=== PATIENT | female | born 1970 | race Caucasian/White ===

== ENCOUNTER → 2022-08-01 | Outpatient (CLI) | payer MEDICAID, SELFPAY ==
[2022-08-01 13:39] LABS: Absolute Lymphocyte Count 3.22 X10^3/uL (0.83-4.51); Absolute Neutrophil Count 5.4 X10^3/uL (2.0-7.7); Basophil# 0.07 X10^3/uL; Basophil% 0.7 % (0-1); Eosinophil# 0.09 X10^3/uL; Eosinophils% 0.9 % (0-5); Hematocrit 39.6 % (37-47); Hemoglobin 13.1 g/dL (12.0-15.0); Lymphocyte # 3.22 X10^3/ul (0.83-4.51); Lymphocyte % 33.3 % (19-41); Mean Corp Hgb Conc 33.1 g/dL (32-36); Mean Corpuscular Hgb 30.8 pg (27.0-32.0); Mean Platelet Vol. 8.6 fl (6.2-12.0); Monocyte# 0.79 X10^3/uL; Monocyte% 8.2 % (0-10); NRBC Flagged by Analyzer 0 % (0-5); Neutrophil % 55.9 % (47-70); Platelet Count 374 K/mm3 (150-450); RBC Distribution Width CV 13.5 % (11.6-14.6); RBC Distribution Width SD 45.7 fl (35.1-43.9); Red Blood Count 4.26 M/mm3 (4.2-5.4); White Blood Count 9.7 K/mm3 (4.4-11.0)
[2022-08-01 13:43] LABS: Erythrocyte Sedimentation Rate 29 mm/hr (0-30)
[2022-08-01 13:59] LABS: D-Dimer Quantitative (DVT/PE) 0.42 FEU/ug/m (0.27-0.49)
[2022-08-03 13:08] LABS: Anti-Centromere B Ab <0.2 AI (0.0-0.9); Anti-Chromatin <0.2 AI (0.0-0.9); Anti-Jo <0.2 AI (0.0-0.9); Anti-Scleroderma-70 AB <0.2 AI (0.0-0.9); Anti-dsDNA Ab <1 IU/mL (0-9); RNP Ab <0.2 AI (0.0-0.9); SJOGREN'S Anti-SS-A test < 0.2 AI (0.0-0.9); SJOGREN'S Anti-SS-B test < 0.2 AI (0.0-0.9); Smith Ab <0.2 AI (0.0-0.9)
[2022-08-06 12:07] LABS: Cytoplasmic Ab (C-ANCA) <1:20 titer (Neg:<1:20); Immunoglobulin E < 2 IU/mL (6-495); PROEL- A/G Ratio 1.2 (0.7-1.7); PROEL- Albumin 3.7 g/dL (2.9-4.4); PROEL- Alpha-1 Globulin 0.2 g/dL (0.0-0.4); PROEL- Alpha-2 Globulin 0.9 g/dL (0.4-1.0); PROEL- Beta Globulin 0.9 g/dL (0.7-1.3); PROEL- Globulin, Total 3.1 g/dL (2.2-3.9); PROEL- TOTAL PROTEIN 6.8 g/dL (6.0-8.5); Perinuclear Ab (P-ANCA) <1:20 titer (Neg:<1:20)
== END | disposition home or self-care (01) ==
PROVIDERS: PCP Nurse Practitioner Primary Care; Referring Provider Internal Medicine; Visit Provider Internal Medicine
DX: R06.02 Shortness of breath (principal); J30.9 Allergic rhinitis, unspecified; L95.9 Vasculitis limited to the skin, unspecified
CPT/HCPCS: 36415; 82785; 84165; 85025; 85379; 85652; 86140; 86225; 86235; 86256; 87040; 87449; 87633

== ENCOUNTER → 2022-08-04 | Outpatient (CLI) | payer MEDICAID, SELFPAY ==
[2022-08-04 10:07] LABS: Amphetamine Urine VISTA NEGATIVE (<1000 ng/mL); Barbiturate Urine VISTA NEGATIVE (< 200 ng/mL); Benzodiazepine Urine VISTA NEGATIVE (< 200 ng/mL); Cocaine Urine VISTA NEGATIVE (< 300 ng/mL); Ecstacy Urine VISTA NEGATIVE (< 500 ng/mL); Methadone Urine VISTA NEGATIVE (< 300 ng/mL); PCP Urine VISTA NEGATIVE (< 25 ng/mL); THC Urine VISTA NEGATIVE (< 50 ng/mL); Vista UDS pH Range 6
== END | disposition home or self-care (01) ==
LOC: LABSPEC 09:05
PROVIDERS: PCP Nurse Practitioner Primary Care; Referring Provider Internal Medicine; Visit Provider Internal Medicine
DX: R06.02 Shortness of breath (principal); L95.9 Vasculitis limited to the skin, unspecified; J30.9 Allergic rhinitis, unspecified; M54.9 Dorsalgia, unspecified
CPT/HCPCS: 80307; 87070; 87205

== ENCOUNTER → 2022-08-18 | Outpatient (CLI) | payer MEDICAID, SELFPAY | END | disposition home or self-care (01) | LOC: SL 20:18 | PROVIDERS: PCP Nurse Practitioner Primary Care; Visit Provider Internal Medicine | DX: G47.10 Hypersomnia, unspecified (principal); G47.30 Sleep apnea, unspecified; G25.9 Extrapyramidal and movement disorder, unspecified; G47.34 Idiopathic sleep related nonobstructive alveolar hypoventilation | CPT/HCPCS: 95810 ==

== ENCOUNTER → 2022-08-23 | Outpatient (CLI) | payer MEDICAID, SELFPAY ==
--- NOTE | 2022-08-23 16:57 | CT_ITS ---
EXAM: CT CHEST WITHOUT INTRAVENOUS CONTRAST CLINICAL INDICATION: follow up bibasilar lung nodules -- biapical emphysema TECHNIQUE: Helically acquired images were obtained of the chest without intravenous contrast. This CT exam was performed using one or more of the following dose reduction techniques: automated exposure control, adjustment of the mA and/or kV according to patient size, and/or use of iterative reconstruction technique. RADIATION DOSE: Total DLP: 554.18 mGy-cm. COMPARISON: No relevant prior studies available. FINDINGS: LUNGS AND PLEURAL SPACES: Mild pulmonary emphysema is present. No superimposed airspace disease or interstitial thickening is noted. There is no pleural effusion. No apical emphysematous blebs or bullae are identified. Within the left lower lobe laterally is a 4 mm ovoid circumscribed noncalcified nodule. Within the superior lateral right lower lobe is a 4.7 x 3 mm ovoid circumscribed noncalcified subpleural nodule. 2 additional pleural-based nodules are seen at the right lung base along the right hemidiaphragm, measuring 3 mm and 4.5 mm in maximal diameter. No spiculated pulmonary mass lesions are identified. HEART: No coronary artery calcification or significant pericardial effusion. MEDIASTINUM: Minimal streaky scarring or residual thymus noted within the anterior mediastinum. A normal size pre-tracheal lymph node is present. No mediastinal adenopathy. Esophagus is unremarkable. No hiatal hernia. THYROID: Unremarkable. No thyroid lesions. BONES/JOINTS: Mid to lower thoracic degenerative spurring. No acute osseous abnormality. No suspicious lytic or blastic abnormality. VASCULATURE: Thoracic aorta is normal in caliber. INTRAPERITONEAL SPACE: Within the superior right hepatic lobe is a 3.2 cm rounded hypodense lesion with slightly lobulated margins; this lesion is more dense than a simple cyst and most likely represents cavernous hemangioma. Visualized spleen, pancreas, adrenal glands and renal upper poles are unremarkable. No pneumoperitoneum is noted. CT/Chest without Contrast IMPRESSION: Mild pulmonary emphysema. Small noncalcified circumscribed lower lobe nodules measuring under 6 mm in diameter; Fleischner Society Guidelines (MacPhillhon, et al. Radiology 2017; 284(1):228-43) suggest that no follow-up is necessary for patients with a low risk of malignancy. 3.2 cm hypoattenuating lesion within the right hepatic lobe, more dense than a simple cyst and most likely due to cavernous hemangioma. Ultrasound, enhanced CT or MR could be utilized for confirmation. Electronically Signed: Donaldo Stubbs MD at 3:54 EDT ,
--- NOTE | 2022-08-23 16:59 | CT_ITS ---
EXAM: CT MAXILLOFACIAL SINUSES WITHOUT INTRAVENOUS CONTRAST CLINICAL INDICATION: SINUSITIS TECHNIQUE: Helically acquired images were obtained of the maxillofacial sinuses without intravenous contrast. This CT exam was performed using one or more of the following dose reduction techniques: automated exposure control, adjustment of the mA and/or kV according to patient size, and/or use of iterative reconstruction technique. RADIATION DOSE: Total DLP: 809.06 mGy-cm. COMPARISON: No relevant prior studies available. FINDINGS: MAXILLARY SINUSES: Clear. SPHENOID SINUSES: Clear. FRONTAL SINUSES: Clear. Type I Agger cell on the right. Type II Agger cell on the left. ETHMOID AIR CELLS: Clear. No supraorbital ethmoid air cell. NASAL CAVITY/SEPTUM: Nasal septum is midline. Inferior turbinates are hypertrophied. There is slight paradoxical curvature of the middle turbinates anteriorly. No kit bullosa. There is lateral deviation of each uncinate process with narrowing of the ethmoidal infundibulum, with each ethmoid infundibulum measuring under 1 mm in diameter, as measured on the coronal images. BONES/JOINTS: Previous interbody fusion at the C3 4/5 level. Left-sided facet arthritis in the mid cervical region. ORBITS: Unremarkable. DENTAL: Periapical lucencies noted about the right lower canine and right lower premolars indicating periodontal disease. OTHER: Visualized brain parenchyma is unremarkable. The mastoid air cells are clear. Submandibular and parotid glands are symmetric. Parapharyngeal fat is preserved. Epiglottis is normal in size. CT/Sinus/Facial Bone IMPRESSION: No findings of acute or chronic sinusitis. No paranasal sinus retention cysts. Hypertrophy of the inferior nasal turbinates. No kit bullosa. Lateral deviation of each uncinate process with subsequent narrowing of each ethmoid infundibulum. Electronically Signed: Donaldo Stubbs MD at 4:53 EDT ,
== END | disposition home or self-care (01) ==
PROVIDERS: PCP Nurse Practitioner Primary Care; Referring Provider Otolaryngology; Visit Provider Otolaryngology
DX: J32.8 Other chronic sinusitis (principal)
CPT/HCPCS: 70486; 71250

== ENCOUNTER 2022-08-24 17:04 | Emergency (ER) | payer MEDICAID, SELFPAY ==
[2022-08-24 17:07] VITALS: BP 135/80; PULSE 83; RESP 18; TEMP 36; O2SAT 99; BMI 27.8
--- NOTE | 2022-08-24 17:53 | CT_ITS ---
INDICATION: Anisocoria EXAMINATION: CT BRAIN WITH CONTRAST TECHNIQUE: Noncontrast axial images were obtained of the brain. Subsequently, routine carotid CT angiogram protocol was performed without and with IV contrast. In addition, images were obtained of the [place]. NASCET criteria using the distal ICAs for comparison were used for evaluation of stenoses. 3D reconstructions were reviewed. A radiation dose optimization technique was used for this scan. IV Contrast dosage and agent: COMPARISON: None. FINDINGS: --CT BRAIN: BRAIN PARENCHYMA: No intra- or extra-axial hemorrhage. No evidence of acute infarct. No intracranial mass or mass effect. There is preservation of the cali/white matter interface. Posterior fossa structures are unremarkable. CSF SPACES: Appropriate for age. No hydrocephalus. Basal cisterns are patent. CALVARIUM, SKULL BASE, PARANASAL SINUSES AND MASTOID AIR CELLS: Clear. No discrete lytic or blastic abnormalities. --CTA NECK: AORTIC ARCH AND BRANCHES: Normal anatomy, patent. RIGHT CCA: No occlusion, significant stenosis or dissection. RIGHT ICA: No occlusion, significant stenosis or dissection. LEFT CCA: No occlusion, significant stenosis or dissection. LEFT ICA: No occlusion, significant stenosis or dissection. RIGHT VERTEBRAL ARTERY: No occlusion, significant stenosis or dissection. LEFT VERTEBRAL ARTERY: No occlusion, significant stenosis or dissection. NECK SOFT TISSUES: Unremarkable. --CTA HEAD: --Anterior circulation: ICAs: No significant stenosis at the intracranial/visualized segments. ACAs: No significant stenosis at the visualized segments. ACOM: Present. MCAs: No significant stenosis at the visualized segments. --Posterior circulation: PCOMs: Nonvisualization bilaterally. destination sign repairer: No significant stenosis at the visualized segments. BASILAR ARTERY: No significant stenosis. VERTEBRAL ARTERIES: No significant stenosis at the intradural/visualized segments. No evidence of intracranial aneurysm or vascular malformation. CT/CTA Head AND Neck W/ Contrast IMPRESSION: Negative CT Brain, CTA Carotid, and CTA Brain. Electronically Signed: Tommy Toro DO at 19:04 EDT ,
[2022-08-24 18:17] LABS: Absolute Lymphocyte Count 2.05 X10^3/uL (0.83-4.51); Absolute Neutrophil Count 4.2 X10^3/uL (2.0-7.7); Basophil# 0.05 X10^3/uL; Basophil% 0.7 % (0-1); Eosinophil# 0.15 X10^3/uL; Eosinophils% 2.1 % (0-5); Hematocrit 37.2 % (37-47); Hemoglobin 12.6 g/dL (12.0-15.0); Lymphocyte # 2.05 X10^3/ul (0.83-4.51); Lymphocyte % 28.6 % (19-41); Mean Corp Hgb Conc 33.9 g/dL (32-36); Mean Corpuscular Hgb 31.2 pg (27.0-32.0); Mean Corpuscular Volume 92.1 fL (81-99); Mean Platelet Vol. 8.6 fl (6.2-12.0); Monocyte# 0.68 X10^3/uL; Monocyte% 9.5 % (0-10); NRBC Flagged by Analyzer 0 % (0-5); Neutrophil # 4.22 X10^3/uL (2.7-7.7); Neutrophil % 58.8 % (47-70); Platelet Count 409 K/mm3 (150-450); RBC Distribution Width CV 13.5 % (11.6-14.6); RBC Distribution Width SD 46.1 fl (35.1-43.9); Red Blood Count 4.04 M/mm3 (4.2-5.4); White Blood Count 7.2 K/mm3 (4.4-11.0)
[2022-08-24 18:31] LABS: Anion Gap 4 (5-15); BUN 18 mg/dL (7-18); Calcium,Total 9.6 mg/dL (8.5-10.1); Chloride 109 mmol/L (98-107); EST Glomerular Filtration Rate 62 mL/min (>60); Est Glom Filt Rate - Afr Amer 75 mL/min (>60); Estimated Creatinine Clearance 50.22 ml/min; Glucose 100 mg/dL (74-106); Potassium 3.8 mmol/L (3.5-5.1); Sodium Level 140 mmol/L (136-145)
--- NOTE | 2022-08-24 19:11 | EDS_ITS ---
HPI History of Present Illness Chief Complaint: Eye Problem Informant: patient Onset/Context/Timing Location: Right Eye Onset: Today Context: Gradual Onset Timing: Continuous Worsened by: Nothing Relieved by: Nothing Associated Symptoms Associated Symptoms - Eyes: Negative for Burning, Crusting, Drainage, Eyelid swelling, Foreign body sensation, Itching, Matting, Pain, Photophobia or Redness Narrative Narrative: Patient presents with blurry vision from her right eye that began today. Patient states it became gradually worse while she was at work today. Patient states she looked in the mirror and noted that her right pupil was larger than her left. Patient states nothing makes it better and nothing makes it worse. Patient denies any pain. Patient denies any foreign body sensation. Patient denies any injury. Patient states she normally wears glasses. Patient states that when she closed her right eye and only looked out of her left eye her vision was fine. [facility] Medical History Allergic rhinitis Anxiety Back pain Cervical radiculopathy Chest pain Chronic bronchitis Decreased GFR Depression Digital clubbing Elevated d-dimer Eustachian tube dysfunction Fatigue Fibromyalgia Hot flashes Hypersomnia with sleep apnea, unspecified Hypoxia, sleep related Insomnia Iron deficiency Lipodystrophy Lung nodules Migraine Movement disorder Palpitations Restrictive lung disease SOB (shortness of breath) Thrombocytosis Thyroid enlarged Toe pain Upper back pain Home Medications fluticasone propionate 50 mcg/actuation nasal spray,suspension (Allergy Relief (fluticasone)) 1 spray intranasal DAILY 07/06/22 [History Last Taken Unknown] Allergy/AdvReac Type Severity Reaction Status Date / Time amoxicillin Allergy Diarrhea Verified 08/24/22 17:06 Environmental Allergies: Allergy Rash Verified 08/24/22 17:06 Uncoded Penicillins Allergy Diarrhea Verified 08/24/22 17:06 pregabalin [From Lyrica] Allergy Other Verified 08/24/22 17:06 Family History Father Cancer Heart disease Mother Diabetes Heart disease Daughter Heart murmur Surgical History H/O breast surgery H/O section H/O: hysterectomy History of bunionectomy Hx of tonsillectomy Status post breast lump removal Social History Smoking Status: Light Smoker (<10/day) ROS ROS ED Constitutional Constitutional ED: Denies chills or fever(s) Eyes Eyes: Reports blurry vision; Denies diplopia ENT ENT ED: Reports rhinorrhea; Denies sore throat Cardiovascular Cardiovascular: Denies chest pain or palpitations Respiratory/Chest Respiratory/Chest: Reports dyspnea; Denies cough Gastrointestinal Gastrointestinal: Reports nausea; Denies vomiting Genitourinary Genitourinary ED: Denies dysuria or hematuria Musculoskeletal Musculoskeletal: Denies back pain or neck pain Integumentary Denies abscess or rash Neurologic Neurologic: Reports headache(s); Denies weakness Allergic/Immunologic Allergic/Immunologic ED: Denies mouth swelling or urticaria EXAM Physical Exam Const Vital Signs: 08/24/22 17:07 Temperature 96.8 F L Temperature Source Temporal Pulse Rate 83 Respiratory Rate 18 Blood Pressure 135/80 H Blood Pressure Mean 98 Pulse Ox 99 Oxygen Delivery Method Room Air Positive well nourished and well developed General Appearance ED: well developed and NAD HEENT atraumatic; Negative for tenderness Eyes Eyes Narrative: Pupils are equal, round, and reactive to light bilaterally. I do not appreciate an anisocoria at this time. Extraocular muscles are intact. Conjunctiva is clear. Anterior chamber is clear. There is no hyphema. Neck supple and no JVD Resp normal respiratory effort and clear to auscultation bilaterally Cardio regular rate and regular rhythm Neuro oriented x3, CN's II-XII intact bilaterally, moves all extremities and no sensory deficits noted Sensorium / Orientation: alert Motor Exam: strength 5/5 throughout MDM MDM MDM Narrative Medical decision making narrative: Because of the reported anisocoria, differential diagnosis includes aneurysm of the anterior communicating artery, migraine headache, and intracranial bleeding. CT scan of the brain will be obtained to assess for intracranial bleeding. CTA of the head and neck will be obtained to assess for intracranial aneurysm. CBC will be obtained to assess for leukocytosis and anemia. Basic metabolic profile will be obtained to assess for renal function and electrolyte abnormality. Lab Data Attestation: I reviewed the patient's lab results. Lab results narrative: CBC was reviewed and was within normal limits. Basic metabolic profile was reviewed and was within normal limits. Labs: Laboratory Results - last 24 hr 08/24/22 08/24/22 18:05 18:05 WBC 7.2 RBC 4.04 L Hgb 12.6 Hct 37.2 MCV 92.1 MCH 31.2 MCHC 33.9 RDW Std Deviation 46.1 H RDW Coeff of Anaid 13.5 Plt Count 409 MPV 8.6 Immature Gran % (Auto) 0.300 Neut % (Auto) 58.8 Lymph % (Auto) 28.6 Faulk % (Auto) 9.5 Eos % (Auto) 2.1 Baso % (Auto) 0.7 Absolute Neuts (auto) 4.2 Absolute Lymphs (auto) 2.05 Nucleated RBC % 0 Sodium 140 Potassium 3.8 Chloride 109 H Carbon Dioxide 27.0 Anion Gap 4 L BUN 18 Creatinine 1.00 Estim Creat Clear Calc 50.22 Est GFR (MDRD) Af Amer 75 Est GFR (MDRD) Non-Af 62 BUN/Creatinine Ratio 18.0 Glucose 100 Calcium 9.6 Radiography Diagnostic Testing: Clinical Impression(s) from Imaging Studies Head/Neck CTA 08/24/22 17:53 IMPRESSION: Negative CT Brain, CTA Carotid, and CTA Brain. Electronically Signed: Tommy Toro DO at 19:04 EDT Reading Location ID and State: [facility] / [place] Tel [phone], Service support , CT scan of the brain was obtained. There is no acute intracranial abnormality. This was interpreted by the radiologist and was also independently reviewed by myself. CTA of the head and neck was obtained. There is no aneurysm or occlusion. This was interpreted by the radiologist was also independently reviewed by myself. Treatment and Re-Evaluation Narrative: Patient was advised of her findings. Patient was instructed to follow-up with her primary care physician in 5 to 7 days. Patient was instructed return if worse in any way. Patient understood and was agreeable with the plan. All questions were answered. Discharge Plan Triage Chief Complaint: Eye Problem Other Complaint: Other, Pain/Inj Shortness of Breath ED Provider: Juan A Walker Dx/Rx/DC Orders Clinical Impression: Blurred vision, right eye, Migraine Instructions: ED Blurred Vision Prescriptions: No Action fluticasone propionate [Allergy Relief (fluticasone)] 50 mcg/actuation spray,suspension 1 spray intranasal DAILY Rx Instructions: administer into each nostril Primary Care Provider: Ericka Bustamante NP Referrals: Ericka Bustamante NP, MANAGED CARE MANAGER-C [Primary Care Provider] - 3-5 Days Disposition Disposition: Home, Self Care
== END 2022-08-24 19:46 | disposition home or self-care (01) ==
PROVIDERS: Emergency Provider Emergency Medicine; PCP Nurse Practitioner Primary Care; Visit Provider Emergency Medicine
DX: H53.8 Other visual disturbances (principal); G43.909 Migraine, unspecified, not intractable, without status migrainosus; F17.200 Nicotine dependence, unspecified, uncomplicated; Z90.710 Acquired absence of both cervix and uterus
CPT/HCPCS: 70496; 70498; 80048; 85025; 99282; Q9967

== ENCOUNTER → 2022-09-01 | Outpatient (CLI) | payer MEDICAID, SELFPAY ==
--- NOTE | 2022-09-03 06:45 | PFT ---
INTRODUCTION: The patient is a 52-year-old female that presents for pulmonary function studies secondary to a diagnosis of shortness of breath. Respiratory therapy reported good patient effort. Bronchodilators were used during testing. INTERPRETATION: Forced expiration spirometry demonstrates no evidence of a large airways obstructive ventilatory defect. There was no significant response to aerosolized bronchodilators. Spirograms are of good quality and plateau normally. Body plethysmography was performed and revealed a decreased TLC to 3.15 L, 71% of predicted, indicative of a mild restrictive ventilatory impairment. Diffusing capacity by single breath CO was reduced at 44% of predicted. IMPRESSION: Mild restrictive ventilatory impairment with disproportionate reduction in diffusing capacity.
== END | disposition home or self-care (01) ==
LOC: PSN 08:09
PROVIDERS: PCP Nurse Practitioner Primary Care; Referring Provider Internal Medicine; Visit Provider Internal Medicine
DX: R06.02 Shortness of breath (principal); L95.9 Vasculitis limited to the skin, unspecified; J30.9 Allergic rhinitis, unspecified
CPT/HCPCS: 94060; 94726; 94729

== ENCOUNTER → 2022-11-13 | Outpatient (CLI) | payer MEDICAID, SELFPAY ==
--- NOTE | 2022-11-13 15:03 | CT_ITS ---
STUDY: LOW DOSE CT LUNG CANCER SCREENING REASON FOR EXAM: Female, 52 years old. Smoker, currently one half pack per day for 36 years. RADIATION DOSAGE (If Supplied By Facility): CTDIvol = ( 1.59 ) mGy, DLP = ( 45.46 ) mGycm TECHNIQUE: No contrast was administered. Low dose technique was utilized (average mAS-38 and kVp 120). 1.25 mm axial source images with a slice interval of 1.25-mm were reconstructed in lung windows. COMPARISON: Prior study dated: 08/23/2022, unenhanced chest CT NODULES: Slightly hyperexpanded lungs with centrilobular and paraseptal emphysematous changes again noted. Stable 4 mm peripheral nodule within superior lateral right lower lobe (series 2 axial image 111). Stable appearance of couple of pleural-based nodules within right lung base abutting posterior dome of diaphragm, largest 4 mm (axial image 159). Stable 4.5 mm noncalcified nodule within lateral left lower lobe and adjacent small pleural-based triangle or scarlike opacity (axial images 128 and 131). No new pulmonary nodular opacities demonstrated. No pulmonary mass or consolidation. No pneumothorax or pleural effusion. Airways are patent. Heart normal size. No appreciable coronary arterial calcifications are significant pericardial effusion. No thoracic aortic aneurysm. No pathologically enlarged mediastinal or hilar lymph nodes. Unremarkable esophagus. No acute findings within imaged upper abdomen. No acute osseous abnormality. CT/Low Dose CT Lung Screening IMPRESSION: COPD with stable appearance of a few small nodules within bilateral lower lobes, less than 5 mm diameter. Lung-RADS category 2 - Continue annual screening with LDCT in 12 months. IMPORTANT NOTES FOR USE: ACR Lung-RADS Version 1.1 Assessment Categories Release Date: 2018 Category: Coded 0-4 bases on nodule(s) with highest degree of suspicion. Negative screen is defined as categories 1 and 2; a positive screen is defined as categories 3 and 4. Category 3 and 4A nodules that are unchanged on interval CT should be coded as category 2, and individuals returned to screening in 12 months. Category 4X: Category 3 or 4 nodules with additional imaging findings that increase the suspicion of lung cancer, such as spiculation, GGN that doubles in size in 1 year, enlarged lymph notes, etc. Category Modifiers: S (significant finding unrelated to lung cancer) Electronically Signed: Jeff Ritchie MD at 6:18 EDT ,
== END | disposition home or self-care (01) ==
LOC: CT 15:00
PROVIDERS: PCP Nurse Practitioner Primary Care; Referring Provider Nurse Practitioner Acute Care; Visit Provider Nurse Practitioner Acute Care
DX: F17.210 Nicotine dependence, cigarettes, uncomplicated (principal)
CPT/HCPCS: 71271

== ENCOUNTER → 2022-11-14 | Outpatient (CLI) | payer MEDICAID, SELFPAY ==
[2022-11-14 12:49] LABS: Base Excess -1 mmol/L (-2 to +2); Bicarbonate 22.9 mmol/L (22-26); Blood Gas Specimen Type ART; O2 Delivery Device Room Air; PO2 94 mmHG (75-100); SITE L Brach; SO2 98 % (95-99); Total Carbon Dioxide 24 mmol/L; pCO2 33.3 mmHg (35-45); pH 7.45 (7.35-7.45)
[2022-11-14 13:51] VITALS: PULSE 106; PULSE 107; PULSE 110; PULSE 71; PULSE 72; PULSE 81; PULSE 90; PULSE 94; O2SAT 88; O2SAT 92; O2SAT 93; O2SAT 96; O2SAT 97; O2SAT 98
--- NOTE | 2022-11-15 08:32 | PCM.PSN.6M ---
PSN 6 Minute Walk Test 6 Minute Walk Test 6 Minute Walk Test: 6 Minute Walk Test PSN:6-Minute Walk Test Start: 11/14/22 13:51 Freq: Status: Active Protocol: [id number] Document 11/14/22 13:51 EW (Rec: 11/14/22 13:57 EW Desktop) 6 Minute Walk Test Date Performed 11/14/22 Time Performed 13:00 Height 5 ft 1 in Weight: 147 lb Weight in Pounds 147.[address]: Vilma Tello FACULTY I ON CALL MEDICAL ASSISTANT Assistive device used: None Pre-test Oxygen Delivery Method Room Air Pulse Ox 98 Pulse Rate (60-100) 72 Dyspnea Esther Scale (0-10) 3 Exertion Esther Scale (6-20) 6 1st minute Oxygen Delivery Method Room Air Pulse Ox 98 Pulse Rate (60-100) 71 2nd minute Oxygen Delivery Method Room Air Pulse Ox 92 Pulse Rate (60-100) 94 3rd minute Oxygen Delivery Method Room Air Pulse Ox 88 Pulse Rate (60-100) 106 H 4th minute Oxygen Flow Rate (L/min) 2 Oxygen Delivery Method Nasal Cannula Pulse Ox 96 Pulse Rate (60-100) 90 5th minute Oxygen Flow Rate (L/min) 2 Oxygen Delivery Method Nasal Cannula Pulse Ox 92 Pulse Rate (60-100) 107 H 6th minute Oxygen Flow Rate (L/min) 2 Oxygen Delivery Method Nasal Cannula Pulse Ox 93 Pulse Rate (60-100) 110 H Post-test Oxygen Flow Rate (L/min) 2 Oxygen Delivery Method Nasal Cannula Pulse Ox 97 Pulse Rate (60-100) 81 Dyspnea Esther Scale (0-10) 2 Exertion Esther Scale (6-20) 8 Full Laps Walked 22 Partial Lap, Number of Tiles Walked 0 Total Distance Walked (ft) 1298 Interpretation Interpretation: The patient ambulated 1298 feet over the course of 6 minutes beginning on room air without assistive devices. Pretesting oxygen saturation was noted to be 98% on room air. With ambulation, the yan oxygen saturation was 88%. 2 L/min of supplemental oxygen was applied, and the patient was able to complete the remainder of the test while maintaining appropriate saturations. Recommendations Recommendations: 2 L/min of supplemental oxygen is required with exertion.
== END | disposition home or self-care (01) ==
LOC: PSN 12:32
PROVIDERS: PCP Nurse Practitioner Primary Care; Referring Provider Nurse Practitioner Acute Care; Visit Provider Nurse Practitioner Acute Care
DX: R06.02 Shortness of breath (principal)
CPT/HCPCS: 36600; 82803; 94618

== ENCOUNTER → 2022-12-01 | Outpatient (CLI) | payer MEDICAID, SELFPAY ==
--- NOTE | 2022-12-01 11:46 | NM_ITS ---
CLINICAL: 52-year-old female with history of shortness of breath. VENTILATION-PERFUSION LUNG SCINTIGRAPHY COMPARISON: Plain film chest radiograph 12/01/2022 FINDINGS: The patient was administered 53.2 mCi 99m Tc DTPA aerosol. The aerosol ventilation study demonstrates mild heterogeneous ventilation identified throughout the bilateral lung sotelo without corresponding radiographic changes defined on plain film chest x-ray dated 12/01/2022. Central clumping of the aerosol is noted in the bilateral hemithorax. Following the intravenous administration of 5.7 mCi of 99m Tc MAA the pulmonary perfusion study reveals uniform perfusion throughout both lung sotelo. There are no segmental or subsegmental perfusion defects identified. There are no ventilation-perfusion mismatches observed. NM/Quant Lung Vent/Perf Scan IMPRESSION: 1. NORMAL 99m Tc MAA pulmonary perfusion imaging examination, according to PIOPED II interpretive criteria. (Sotsman et al, Radiology 246: 941, 2008 Soluc et al, J Nucl Med 49: 1741, 2008). 2. Central clumping of the aerosol may be secondary to obstructive airway mechanics and or clinical tachypnea. Electronically Signed: Sunday Sethi DO at 12:58 EDT ,
--- NOTE | 2022-12-01 11:46 | ECHOCS_ITS ---
Reason For Study: Dyspnea/SOB Procedure This was a 2D Doppler, Color Flow transthoracic echocardiogram. The study was technically difficult. Contrast injection was performed. Exam performed in department. Left Ventricle Normal LV size. The estimated ejection fraction is 65 %. No evidence for diastolic dysfunction. No regional wall motion abnormalities noted. Right Ventricle Normal RV size. Normal systolic function. Atria Normal left atrium. Normal right atrium. No doppler evidence for ASD. Bubble contrast study negative for right to left interatrial shunt. Mitral Valve There is no mitral valve stenosis. Trivial mitral valve insufficiency. Tricuspid Valve There is no tricuspid stenosis. No tricuspid valve insufficiency. Unable to estimate RV systolic pressure due to inadequate jet, pulmonary artery pressure probably normal. Aortic Valve Trisinus/trileaflet aortic valve. There is no aortic stenosis. No aortic valve insufficiency. Pulmonic Valve There is no pulmonic valvular stenosis. No pulmonic valve insufficiency. Great Vessels Normal aortic root. Pericardium/Pleural No pericardial effusion. Medication 22 gauge I.V. with prn adaptor inserted into right arm. Diluted definity 2.5ml given slow IV push to enhance endocardial definition. Performed a rapid injection of agitated mix of 9 cc saline and 1cc air to assess for atrial septal defect. MMode/2D Measurements & Calculations LVIDd: 5.0 cm IVSd: 0.96 cm Ao root diam: 3.0 cm LVIDs: 3.7 cm LVPWd: 0.78 cm LA dimension: 3.2 cm FS: 26.3 % LAV(MOD-bp): 23.9 ml LA A4 area: 12.4 cm2 RA A4 area: 9.0 cm2 LAV(MOD-bp) Indexed: 14.6 ml/m2 LAV(MOD-sp2): 17.4 ml LAV(MOD-sp4): 29.4 ml TAPSE: 2.0 cm Time Measurements MV dec time: 0.21 sec Doppler Measurements & Calculations MV E max ho: 63.3 cm/sec Lat Peak E' Ho: 9.5 cm/sec Med Peak E' Ho: 7.1 cm/sec MV A max ho: 55.3 cm/sec E/E' lat: 6.7 E/E' med: 8.9 MV E/A: 1.1 MV V2 max: 69.2 cm/sec MV P1/2t max ho: 70.5 cm/sec Ao V2 max: 101.0 cm/sec MV max P.9 mmHg MV P1/2t: 76.3 msec Ao max P.1 mmHg MV V2 mean: 36.4 cm/sec MV dec slope: 270.7 cm/sec2 Ao V2 mean: 72.1 cm/sec MV mean P.63 mmHg MVA(P1/2t): 2.9 cm2 Ao mean P.3 mmHg MV V2 VTI: 30.1 cm Ao V2 VTI: 26.8 cm AV (velocity ratio): 0.86 LV V1 max: 94.0 cm/sec PA V2 max: 83.8 cm/sec LV V1 max P.5 mmHg PA V2 mean: 60.3 cm/sec LV V1 mean P.8 mmHg LV V1 mean: 62.3 cm/sec LV V1 VTI: 22.9 cm ECHO/Echo Complete W/ Contrast Interpretation Summary The estimated ejection fraction is 65 %. No evidence for diastolic dysfunction. Trivial mitral valve insufficiency. Ordering Physician: Vilma Tello Referring Physician: Vilma Tello Performed By: Sree Novak RCS
--- NOTE | 2022-12-01 12:35 | RAD_ITS ---
EXAM: XR CHEST, 1 VIEW CLINICAL INDICATION: r/o pneumonia -- for nuclear lung scan TECHNIQUE: Frontal view of the chest. COMPARISON: No relevant prior studies available. FINDINGS: LUNGS AND PLEURAL SPACES: Unremarkable. No consolidation or edema. No pneumothorax. No effusion. HEART: Unremarkable. Cardiac silhouette not enlarged. MEDIASTINUM: Central airways and mediastinal contour are unremarkable. BONES/JOINTS: Unremarkable. SOFT TISSUES: Unremarkable. RAD/Chest 1 View IMPRESSION: No radiographic evidence of acute cardiopulmonary disease. Electronically Signed: Agustin Broderick MD at 17:49 EDT ,
== END | disposition home or self-care (01) ==
LOC: NM 11:44
PROVIDERS: PCP Nurse Practitioner Primary Care; Referring Provider Nurse Practitioner Acute Care; Visit Provider Nurse Practitioner Acute Care
DX: R06.02 Shortness of breath (principal)
CPT/HCPCS: 93306; 71045; 78598; A9540; A9567; Q9957; A4216; C8929

== ENCOUNTER → 2022-12-13 | Outpatient (CLI) | payer MEDICAID, SELFPAY ==
[2022-12-13 12:33] LABS: Absolute Lymphocyte Count 2.18 X10^3/uL (0.83-4.51); Absolute Neutrophil Count 3.4 X10^3/uL (2.0-7.7); Basophil# 0.06 X10^3/uL; Eosinophils% 1.6 % (0-5); Hematocrit 39.1 % (37-47); Hemoglobin 12.8 g/dL (12.0-15.0); Lymphocyte # 2.18 X10^3/ul (0.83-4.51); Lymphocyte % 35.1 % (19-41); Mean Corp Hgb Conc 32.7 g/dL (32-36); Mean Corpuscular Hgb 30.5 pg (27.0-32.0); Mean Corpuscular Volume 93.1 fL (81-99); Mean Platelet Vol. 9.2 fl (6.2-12.0); Monocyte# 0.45 X10^3/uL; Monocyte% 7.2 % (0-10); NRBC Flagged by Analyzer 0 % (0-5); Neutrophil % 54.8 % (47-70); Platelet Count 425 K/mm3 (150-450); RBC Distribution Width SD 44.6 fl (35.1-43.9); White Blood Count 6.2 K/mm3 (4.4-11.0)
[2022-12-13 12:57] LABS: Anion Gap 4 (5-15); BUN 13 mg/dL (7-18); BUN/Creat Ratio 15.5 RATIO (10-20); Calcium,Total 9.4 mg/dL (8.5-10.1); Chloride 107 mmol/L (98-107); Creatinine, Serum 0.84 mg/dL (0.55-1.02); EST Glomerular Filtration Rate 76 mL/min (>60); Est Glom Filt Rate - Afr Amer 92 mL/min (>60); Glucose 100 mg/dL (74-106); Potassium 3.9 mmol/L (3.5-5.1); Sodium Level 139 mmol/L (136-145)
== END | disposition home or self-care (01) ==
LOC: LAB 11:21
PROVIDERS: PCP Nurse Practitioner Primary Care; Referring Provider Internal Medicine Cardiovascular Disease; Visit Provider Internal Medicine Cardiovascular Disease
DX: R06.02 Shortness of breath (principal); R07.9 Chest pain, unspecified
CPT/HCPCS: 36415; 80048; 85025

== ENCOUNTER → 2022-12-22 | Day surgery (SDC) | payer MEDICAID, SELFPAY ==
[2022-12-21 08:40] VITALS: BMI 27.0
[2022-12-22 12:25] LABS: Blood Gas Specimen Type VEN; O2 Delivery Device Not entered; SITE Not entered; VBG BASE EXCESS -2 mmol/L (-1.0-3.5); VBG Bicarbonate 23 mmol/L (22-26); VBG PO2 36 mmHg (25-40); VBG SO2 70 % (50-70); VBG TCO2 24 mmol/L (23-33); VBG pCO2 36.7 mmHg (41-51); VBG pH 7.41 (7.32-7.42)
[2022-12-22 12:27] LABS: Blood Gas Specimen Type VEN; O2 Delivery Device Not entered; SITE Not entered; VBG BASE EXCESS 0 mmol/L (-1.0-3.5); VBG Bicarbonate 25 mmol/L (22-26); VBG PO2 37 mmHg (25-40); VBG SO2 70 % (50-70); VBG TCO2 26 mmol/L (23-33); VBG pCO2 40.8 mmHg (41-51); VBG pH 7.39 (7.32-7.42)
[2022-12-22 12:36] LABS: Base Excess -2 mmol/L (-2 to +2); Bicarbonate 22.7 mmol/L (22-26); Blood Gas Specimen Type ART; Mode Not entered; O2 Delivery Device Not entered; PO2 68 mmHG (75-100); SITE Not entered; SO2 93 % (95-99); Total Carbon Dioxide 24 mmol/L; pCO2 36.9 mmHg (35-45)
--- NOTE | 2022-12-25 08:04 | CL.D_ITS ---
Patient Name: CHIP TAMAYO Study Date: 12/22/2022 Performing: Ye Stewart MD Ht: 61 inches 154.94 cm : 1970 Wt: 143.2 lbs 64.86 kg Age: 52 Gender: female BSA: 1.64 PROCEDURE(S) PERFORMED DC05-(40794)RHC/LHC/COR/LV CLINICAL PROFILE AND INDICATIONS Indications: Other Heart Failure: None Stress/Imaging Stress/Image Study Performed: No CAD Presentations: Other: SOB CONCLUSIONS Normal coronary arteries Normal LV size, wall motion,and systolic function Right heart pressures - Normal RECOMMENDATIONS Medical therapy DESCRIPTION OF PROCEDURE The patient arrived to the procedure lab. The risks and benefits of the procedure as well as a full description of our services here and current unavailability of surgical backup were fully explained to the patient and/or their significant other prior to the catheterization. The Timeout was completed, verifying the correct patient and procedure. The patient's procedural site was prepped and draped in the usual fashion. Local anesthetic was given subcutaneously to right radial region with Lidocaine 2%. Local anesthetic was given subcutaneously to right groin region with Lidocaine 2%. Using a modified Seldinger technique, arterial access was obtained via the right radial artery, a 6Fr sheath was inserted. Venous access was obtained via the right femoral vein, a 7Fr sheath was inserted. A 7Fr thermal dilution catheter was inserted and right heart pressures were recorded, it was then advanced to PA position for cardiac outputs. O2 saturations were then obtained. Thermal dilution cardiac outputs were then recorded. The Thermal dilution catheter was then removed. Right Coronary Artery selective angiography was then performed in multiple views using a 5 Fr. 4.0 [place] catheter. Left Coronary Artery selective angiography was performed in multiple views using a 5 Fr. 4.0 [place] catheter. Left Ventriculography was performed in JOY projection using a 5 Fr. Pigtail catheter. LV to AO pullback pressures were then recorded.The arterial sheath was pulled and a TR Band was applied for hemostasis-10 cc air. The venous sheath was then pulled and manual compression applied until hemostasis achieved CORONARY ANGIOGRAPHY DOMINANCE: Right Dominant LEFT HEART ASSESSMENT Left Ventricular Ejection Fraction: by LV Gram 60 % Normal LV wall motion Normal Left Ventricular systolic function Normal Left Ventricular systolic function RIGHT HEART ASSESSMENT Thermal CO: 4.83 Thermal CI: 2.95 Armand CO: 5.44 Armand CI: 3.32 PW: 2/3 1 PA: 19/-1 8 RV: 22/-4 0 RA: 4/2 0 PVR: 116 Right Heart pressures - normal LEFT MAIN: Angiographically normal LEFT ANTERIOR DESCENDING ARTERY: Angiographically normal CIRCUMFLEX ARTERY: Angiographically normal RIGHT CORONARY ARTERY: Angiographically normal COMPLICATIONS No Complications PROCEDURE MEDICATIONS Fentanyl 50 mcg IV Versed 1 mg IV Versed 1 mg IV Versed 1 mg IV Tylenol 650 mg PO 12/22/2022 14:06:01 SUMMARY OF HEMODYNAMIC DATA Time AIR REST Art 106/50 (73) 12:08:26 RA 4/2 (0) 12:22:05 RV 22/-4, 0 12:22:39 PW 2/3 (1) PV 12:23:26 PA 19/-1 (8) PA 12:23:45 PA 25/5 (13) 12:26:59 RA 2/0 (0) 12:27:37 AO 102/52 (75) SA 12:29:12 LV 96/1, 7 12:33:13 LV 111/0, 7 12:33:22 LV 73/-3, 4 12:33:59 LVp 74/-4, 0 12:34:08 AOp 99/-30 (34) 12:34:15 Type SV CO (l/m) CI (l/m/ HR Time AIR REST Thermal 75.50 4.83 2.95 64 12:08:26 Armand 85.00 5.44 3.32 64 12:08:26 Label % O2 Pres/Loc Time AIR REST RA 70 SV 12:35:42 PA 70 PA 12:35:51 AO 93 PV 12:35:58 Signed By Ye Stewart MD On 12/25/2022 08:03:05 Ye Stewart MD
== END | disposition home or self-care (01) ==
PROVIDERS: PCP Nurse Practitioner Primary Care; Referring Provider Internal Medicine Cardiovascular Disease; Visit Provider Internal Medicine Cardiovascular Disease
DX: R06.02 Shortness of breath (principal); F17.210 Nicotine dependence, cigarettes, uncomplicated; Z82.49 Family history of ischemic heart disease and other diseases of the circulatory system; R07.9 Chest pain, unspecified; Z79.82 Long term (current) use of aspirin
CPT/HCPCS: 82803; 93460; 99152; 99153; J7040; Q9967; C1751; C1769; C1894

== ENCOUNTER → 2023-01-11 | Outpatient (CLI) | payer MEDICAID, SELFPAY ==
[2023-01-11] MEDS: Methacholine Chloride 18 ml neb kit INHALATION (07:08)
--- NOTE | 2023-01-11 07:39 | CPS ---
Per testing protocol patient did not receive last dose of Methacholine. Dose placed in pharmaceutical waste bin.
--- NOTE | 2023-01-11 12:19 | BRONCHALL ---
Bronchoprovocation Challenge Bronchoprovocation Challenge Bronchoprovocation Challenge: INTRODUCTION: The patient is a 52-year-old female who presents for a bronchoprovocation challenge secondary to a diagnosis of shortness of breath. Respiratory therapy reported good patient effort and reproducible results. INTERPRETATION: Initial spirometry did not show any large airways obstructive ventilatory defect with preserved airflows throughout. The patient was then given progressively increasing doses of methacholine in a standardized fashion. During the test, the patient did experience a 24% drop in FEV1. The patient did exhibit post test response to albuterol. The PD 20 FEV1 was noted to be 106 ug. IMPRESSION: Positive methacholine inhalation challenge in a pattern consistent with borderline airway hyperresponsiveness
== END | disposition home or self-care (01) ==
LOC: PSN 06:51
PROVIDERS: PCP Nurse Practitioner Primary Care; Referring Provider Nurse Practitioner Acute Care; Visit Provider Nurse Practitioner Acute Care
DX: R06.02 Shortness of breath (principal)
CPT/HCPCS: 94070; 95070

== ENCOUNTER → 2023-01-16 | Outpatient (CLI) | payer MEDICAID, SELFPAY ==
--- NOTE | 2023-01-16 08:05 | RAD_ITS ---
PROCEDURE: Sniff test DATE OF EXAMINATION: January 16, 2023. INDICATION: Female, 52 years old. Shortness of breath. PHYSICIAN: Dr. Yazmin Lee FLUOROSCOPY TIME (if supplied): (18 seconds) minutes/seconds. 2 images were submitted. RAD/Chest Sniff Test Fluoro Only IMPRESSION: Normal sniff test with normal translation of the right and left hemidiaphragms. Electronically Signed: Juan Luis Arce MD at 9:04 EDT ,
== END | disposition home or self-care (01) ==
LOC: RAD 08:02
PROVIDERS: PCP Nurse Practitioner Primary Care; Referring Provider Nurse Practitioner Acute Care; Visit Provider Nurse Practitioner Acute Care
DX: R06.02 Shortness of breath (principal)
CPT/HCPCS: 76000